=== PATIENT | female | born 1990 | race Caucasian/White ===

== ENCOUNTER 2023-11-24 19:15 | Emergency (ER) | payer BC, SELFPAY ==
[2023-11-24 19:18] VITALS: BP 164/94; BMI 36.1
--- NOTE | 2023-11-24 22:14 | ED.GENMED ---
History of Present Illness
General
Chief Complaint: Extremity Pain (non-traumatic)
Source: patient and spouse
Exam Limitations: none
Time Seen by Provider: 11/24/23 19:45
Nursing documentation reviewed up to this point in time: agreed with
Travel History
Have you had any contact with someone who has COVID-19?: No
Do you have any symptoms of coronavirus? Fever > 100 degrees, chills, cough, shortness of breath, sore throat, loss of taste or smell, muscle aches, or headache?: No
History of Present Illness
History of Present Illness:
33-year-old female presents to the emergency room for toenail avulsion. She caught her right first toenail on a chair and bent it backwards and suffered avulsion; nail is still attached at the base. She says her tetanus is up-to-date as of 2 years
ago. No other issues today.
Review of Systems
Review of Systems
All Other Systems: ROS reviewed and negative except as documented in HPI and ROS
Skin: Reports other (Toenail avulsion)
Phy Exam
Physical Exam
Physical Exam:
General: Well appearing and non-toxic
HEENT: protecting airway
Neck: appears supple
CV: No evidence of cyanosis
Resp: No accessory muscle use
Abd: Non-distended
Extremities: Patient has avulsion of the right first toenail; there is no nailbed laceration; she does have significant inward curl of the lateral margin of the nail consistent with what would be an ingrown toenail she says this has been a chronic
issue for her; the nail is still attached at the base near the matrix
Neuro: Alert
Psych: Normal affect
Skin: Intact
Scores
Heart Failure Risk
Heart Failure Risk Score: Not Applicable
Heart Score for Chest Pain Patients
STEMI patient?: Not applicable
Withdrawal Assessment of Alcohol
Withdrawal Assessment Completed?: Not applicable
Course
Orders/Labs/Results
Orders:
Orders
11/24/23 21:11
Benzocaine 20% [Hurricaine [place]] 1 applic .ROUTE .[facility]
Vital Signs
Initial and Last Documented VS:
Initial Vital Signs
Temp Pulse Resp BP Pulse Ox
36.9 C 91 18 164/94 99
11/24/23 19:18 11/24/23 19:18 11/24/23 19:18 11/24/23 19:18 11/24/23 19:18
Last Documented Vital Signs
Temp Pulse Resp BP Pulse Ox
36.9 C 91 18 164/94 99
11/24/23 19:18 11/24/23 19:18 11/24/23 19:18 11/24/23 19:18 11/24/23 19:18
Procedures
Digital Block
Location of injection for digital block: base of digit
Indiction for Digital Block: anesthesia for exam
Was sensory exam normal prior to exam?: intack pin prick
Type of anesthesia: 1% Lidocaine w/o EPI
Complications: none- good anesthesia
MDM/Problems Addressed
Differential Diagnosis Includes:
Toenail avulsion
MDM/Problems Addressed:
33-year-old female presents with a toenail avulsion�her right first toenail was caught on a chair and was avulsed. Tetanus is up-to-date. Her exam is as above. There is no nailbed laceration. I performed a digital block and vigorously irrigated
the nailbed and cleaned the nail. She has significant inward curl of the lateral margin of this nail and it appears that she likely had ingrown toenail prior to this avulsion. I trimmed the lateral margin of the nail down to the base and removed
ingrown portion. Reapplied nail to the nailbed using Dermabond. Clean dressing applied. Will start on prophylactic antibiotic. She will follow-up with her primary for reassessment.
*Pulse Oximetry
Patient hypoxic: no
*Critical Care Note
Total Time (30-74mins, 75-104mins- exclusive of procedures): Not Applicable
Data Reviewed
Source: patient and spouse
ED Attending Note
-
Portions of this chart may have been created with voice recognition software.� Occasional wrong word or��sound alike� substitutions may have occurred due to the inherent limitations of voice recognition software.
Discharge Plan
Departure
Patient Disposition: Home (Routine Discharge)
Date of Disposition: 11/24/23
Time of Disposition: 21:24
Patient with high blood pressure during this ER visit?: Yes
Discharge Problem:
Avulsion of toenail of right foot
Instructions: Nail Avulsion (DC)
Prescriptions:
New
cephalexin 500 mg capsule
500 mg PO TID 5 Days Qty: 15 0RF
Referrals:
Kala Brasher MD [Family Provider] - Follow up in 5-7 days
Activity Restrictions/Additional Instructions:
Thank you for visiting the Emergency Department at [facility].
1. Please schedule a follow up appointment as directed. Call first thing tomorrow morning to make an appointment.
2. If indicated, please take your medications as instructed and indicated on discharge paperwork.
3. If any of your symptoms do not improve, or persist, or become more severe within 6-12 hours, please return to the emergency department for further care.
4. Please return to the emergency department if you develop a headache, neck pain/stiffness, fever greater than 100.4F, chest pain, shortness of breath, persistent nausea, vomiting, slurred speech, difficulty walking, numbness/tingling, weakness,
signs of infection or any other symptoms that are worrisome to you.
Please call [phone] if you have any questions.
Interventions
Interventions:
*Risk Screen - Suicide Last Done: 11/24/23 19:18
*General Assessment Last Done: 11/24/23 20:09
*Neglect/Abuse Screening Last Done: 11/24/23 19:18
ED- Fall Risk Assessment Last Done: 11/24/23 20:10
*ED COVID-19 Vaccine History Last Done: 11/24/23 20:09
*Nursing Disposition Last Done: 11/24/23 21:32
ED-Skin Assessment Last Done: 11/24/23 20:10
ED-Peripheral Vascular Assessment Last Done: 11/24/23 20:11
ED-Musculoskeletal Assessment Last Done: 11/24/23 20:10
Discharge Date and Time
Discharge Date/Time: 11/24/23 21:33
Print Language: UZBEK
== END 2023-11-24 21:33 | disposition home or self-care (01) ==
LOC: EMR 19:15
PROVIDERS: EMERGENCY PHYSICIAN Emergency Medicine; FAMILY PHYSICIAN Student in an Organized Health Care Education/Training Program
DX: S91.201A Unspecified open wound of right great toe with damage to nail, initial encounter (principal); W22.09XA Striking against other stationary object, initial encounter
CPT/HCPCS: 64450; 99285; 11760

== ENCOUNTER → 2023-12-07 12:04 | Outpatient (REF) | payer BC, SELFPAY | LOC: HWRAD 12:04 | PROVIDERS: FAMILY PHYSICIAN Student in an Organized Health Care Education/Training Program | DX: M54.50 Low back pain, unspecified (principal) | CPT/HCPCS: 72100; 72170 ==

== ENCOUNTER → 2024-03-27 17:21 | Outpatient (REF) | payer BC, SELFPAY | LOC: RAD 17:21 | PROVIDERS: ATTENDING PHYSICIAN Student in an Organized Health Care Education/Training Program | DX: O36.8390 Maternal care for abnormalities of the fetal heart rate or rhythm, unspecified trimester, not applicable or unspecified (principal) | CPT/HCPCS: 76801 ==

== ENCOUNTER 2024-03-31 06:30 | Day surgery (SDC) | payer BC, SELFPAY ==
[2024-03-31] VITALS (10 sets, daily range): BP systolic 97–134; BP diastolic 54–97; BMI 36.7
[2024-03-31] MEDS: VIBRAMYCIN 260 MG IV (10:06)
[2024-03-31] MEDS: NORMOSOL-R/PLASMALYTE-A 1000 IV (10:08)
[2024-03-31] MEDS: TYLENOL 1000 MG PO (10:15)
[2024-03-31 10:52] LABS: Hematocrit 30.1 % (37.0-47.0); Hemoglobin 10.1 g/dL (12.0-16.0)
== END 2024-03-31 14:23 | disposition home or self-care (01) ==
LOC: SDS 06:30
PROVIDERS: ATTENDING PHYSICIAN Obstetrics & Gynecology
PROC: 10D17ZZ Extraction of Products of Conception, Retained, Via Natural or Artificial Opening (ICD-10-PCS; 2024-03-31)
DX: O02.1 Missed abortion (principal)
CPT/HCPCS: 59820; 88305; 85014; 85018; 86850; 86900; 86901

== ENCOUNTER 2025-06-03 12:12 | Emergency (ER) | payer BC, SELFPAY ==
[2025-06-03 12:17] VITALS: BP 180/102
[2025-06-03 13:41] VITALS: BP 137/91
--- NOTE | 2025-06-03 13:59 | ED.GENMED ---
History of Present Illness
General
Chief Complaint: Blood Pressure Problem
Source: patient
Exam Limitations: none
Time Seen by Provider: 06/03/25 13:57
History of Present Illness
History of Present Illness:
34yo female (1 prior miscarriage, 1 prior chemical ) currently at 17 weeks gestation presenting for evaluation of a headache. [facility]Dr[facility] Fatuma Sanon[facility] Her last OB appointment was 2 days ago.
Blood pressure was elevated in the office at 141/99. She was told to monitor her blood pressures at home. She had a mild headache upon awakening this morning. Her blood pressure was 114/90 around 10 AM. Around 11:45 AM, she started to develop a
worsening headache and felt like she could not keep her eyes open. She decided to check her blood pressure again and it was elevated at 155/105. She called her OB office and was told to go to the ED for evaluation. Patient is now feeling much
better and headache is currently mild. She denies any visual changes, chest pain, shortness of breath, abdominal pain, vaginal bleeding. No prior history of preeclampsia or hypertension in prior pregnancies. Of note, patient's friend who is also
had to deliver her baby early yesterday and she has been stressed about this.
Phy Exam
General Physical Exam
General Presentation: well appearing and no apparent distress
General age: appears stated age
General Skin: warm and dry
General Habitus: normal
General Mental: alert
ENT Exam
ENT Exam: normocephalic
Cardiovascular Exam
Cardiovascular Exam: regular rate/rhythm, no edema and no murmur
Pulmonary Exam
Pulmonary Exam: lungs clear, no respiratory distress, no rales, no crackles, no rhonchi and no wheezing
Gastrointestinal Exam
Gastrointestinal Exam: non tender, soft, non distended and other (FHR 144)
Neurological Exam
Neurological Exam: alert
Dary Coma Scale
Eye Opening: Spontaneous
Verbal Response: Oriented
Motor Response: Obeys Commands
GCS Total Score: 15
Skin Exam
Skin Exam: normal color and warm/dry
Psychiatric Exam
Psychiatric Exam: anxious
Course
Orders/Labs/Results
Orders:
Orders
06/03/25 12:19
EKG [Electrocardiogram (*1)] Urgent
Reason for Study: Hypertension, Benign
EKG- Treatment ONCE
06/03/25 14:15
Heart Tones ONCE
Vital Signs
Initial and Last Documented VS:
Initial Vital Signs
Temp Pulse Resp BP Pulse Ox
98.4 F 98 15 180/102 100
06/03/25 12:17 06/03/25 12:17 06/03/25 12:17 06/03/25 12:17 06/03/25 12:17
Last Documented Vital Signs
Temp Pulse Resp BP Pulse Ox
98.4 F 79 13 117/77 100
06/03/25 12:17 06/03/25 14:15 06/03/25 14:15 06/03/25 14:00 06/03/25 14:15
MDM/Problems Addressed
Differential Diagnosis Includes:
34yoF here with headache and elevated BP reading. Currently 17 weeks . BP 180/102 in triage. On my arrival to the room, BP improved to 117/77 without intervention. She is also now feeling much better. Otherwise asymptomatic and denies abd
pain/vaginal bleeding. No CP/SOB or visual changes.
Case discussed with Dr. Lockhart, [facility]. No labs needed since she is <20 weeks and preeclampsia is only a concern if over [address] Lockhart recommends outpatient f/u with patient's OBGYN and states she likely will end up having a chronic
hypertension diagnosis. Both patient and are comfortable with this plan. heart tones checked which are normal at 144. Her next OB appt is next week and she was also advised to call the office today. ED return precautions reviewed and
she was discharged in stable condition.
*Pulse Oximetry
SaO2: 100
Oxygen Mode of Delivery: Room air
Patient hypoxic: no
*EKG
Interpreted by ED Provider?: Yes
EKG Intrepretation Date: 06/03/25
Heart Rate: 83
Rate: normal
Rhythm: sinus
[place]: normal axis
Interval: normal interval
QRS Pattern: normal QRS
Ischemia: no ischemia
*Critical Care Note
Total Time (30-74mins, 75-104mins- exclusive of procedures): Not Applicable
ED Attending Note
-
Portions of this chart may have been created with voice recognition software.� Occasional wrong word or��sound alike� substitutions may have occurred due to the inherent limitations of voice recognition software.
Discharge Plan
Departure
Patient Disposition: Home (Routine Discharge)
Date of Disposition: 06/03/25
Time of Disposition: 14:32
Patient with high blood pressure during this ER visit?: No
Discharge Problem:
Elevated blood pressure reading
Instructions: High blood pressure and
Prescriptions:
No Action
No Current Medications
0
Referrals:
Fatuma Sanon MD [Family Provider]
Activity Restrictions/Additional Instructions:
You may take Tylenol as needed for headaches. Continue monitoring your blood pressure at home as instructed by your TYPER.
Please call your TYPER today for follow-up. Return to the ER with any new or worsening symptoms including new vision changes, chest pain, shortness of breath, or vaginal bleeding.
Interventions
Interventions:
*Risk Screen - Suicide Last Done: 06/03/25 12:17
*General Assessment Last Done: 06/03/25 12:17
*Neglect/Abuse Screening Last Done: 06/03/25 12:17
*ED COVID-19 Vaccine History Last Done: 06/03/25 12:17
*ED Influenza Vaccine History Last Done: 06/03/25 12:17
*Nursing Disposition Last Done: 06/03/25 14:35
ED- Cardiac Assessment Last Done: 06/03/25 13:43
ED- Neurological Assessment Last Done: 06/03/25 13:43
ED- Pulmonary Assessment Last Done: 06/03/25 13:43
Discharge Date and Time
Discharge Date/Time: 06/03/25 14:36
Print Language: SWEDISH
[2025-06-03 14:00] VITALS: BP 117/77
== END 2025-06-03 14:36 | disposition home or self-care (01) ==
LOC: EMR 12:12
PROVIDERS: EMERGENCY PHYSICIAN Emergency Medicine; FAMILY PHYSICIAN Obstetrics & Gynecology
DX: O99.891 Other specified diseases and conditions complicating pregnancy (principal); R03.0 Elevated blood-pressure reading, without diagnosis of hypertension; O09.522 Supervision of elderly multigravida, second trimester; Z3A.17 17 weeks gestation of pregnancy
CPT/HCPCS: 99283; 93005